=== PATIENT | female | born 1930 | race Asian ===

== ENCOUNTER 2017-04-03 18:00 | Inpatient (IN) | payer OTHER ==
[~2017-04-03] VITALS: Ht 162.6 cm; Wt 72.3 kg
[2017-04-03] MEDS ORDERED: SOD CHLORIDE 0.9% 1,000 ML IV STA (18:17)
[2017-04-03] MEDS ORDERED: IBUPROFEN 800 MG TAB PO ONE (18:30)
[2017-04-03 19:08] LABS: ADD SCAN DIFF NO
[2017-04-03 19:11] LABS: BASOPHIL # 0.1 10^3/ul (0.0-0.1); BASOPHILS % 0.4 % (0.0-2.0); EOSINOPHILS # 0.2 10^3/ul (0.0-0.5); EOSINOPHILS % 1.8 % (0.0-7.0); HEMATOCRIT 41.1 % (37.0-47.0); HEMOGLOBIN 13.8 g/dl (12.0-16.0); LYMPHOCYTES # 1.1 10^3/ul (0.8-2.9); LYMPHOCYTES % 8.2 % (15.0-51.0); MEAN CORPUSCULAR HEMOGLOBIN 30.3 pg (29.0-33.0); MEAN CORPUSCULAR HGB CONC 33.6 g/dl (32.0-37.0); MEAN CORPUSCULAR VOLUME 90.3 fl (82.0-101.0); MEAN PLATELET VOLUME 10.4 fl (7.4-10.4); MONOCYTES % 7.4 % (0.0-11.0); NEUTROPHILS % 81.7 % (39.0-77.0); PLATELET COUNT 227 10^3/UL (140-415); RED BLOOD COUNT 4.55 10^6/ul (4.20-5.40); RED CELL DISTRIBUTION WIDTH 12.9 % (11.5-14.5); WHITE BLOOD COUNT 13.5 10^3/ul (4.8-10.8)
--- NOTE | 2017-04-03 19:14 | RADRPT ---
PROCEDURE: Chest x-ray CLINICAL INDICATION: Shortness of breath TECHNIQUE: Chest single view COMPARISON: None FINDINGS: There is mild cardiomegaly and atherosclerotic aortic calcification. Pulmonary vessels are normal in caliber. Lung volumes are low. There is linear atelectasis in the right lung base. More patchy d ensities in the left lower lobe which may represent developing pneumonia. Continued follow-up is re commended. Costophrenic angles are sharp. IMPRESSION: 1. Mild cardiomegaly and atherosclerotic aortic calcification. 2. Questionable evolving left lower lobe pneumonia versus atelectasis. 3. Linear right lower lobe atelectasis RPTAT: HH .Remi Vinson MD, Date Time Electronically viewed and signed by .Remi Vinson MD, on 04/03/2017 19:13 .W/
[2017-04-03 19:19] LABS: ADD UMIC YES; URINE BILIRUBIN (Dip) NEGATIVE (NEGATIVE); URINE BLOOD (Dip) TRACE (NEGATIVE); URINE COLOR LT. YELLOW (YELLOW); URINE GLUCOSE (Dip) NEGATIVE (NEGATIVE); URINE KETONES (Dip) NEGATIVE (NEGATIVE); URINE LEUKOCYTE ESTERASE (Dip) 1+ (NEGATIVE); URINE NITRITE (Dip) POSITIVE (NEGATIVE); URINE TOTAL PROTEIN (Dip) NEGATIVE (NEGATIVE); URINE UROBILINOGEN (Dip) 0.2 E.U./dL (0.1-1.0)
[2017-04-03 19:35] LABS: ALBUMIN/GLOBULIN RATIO 1.37; BILIRUBIN,INDIRECT 0.5 mg/dl (0-1.1); BILIRUBIN,TOTAL 0.5 mg/dl (0.2-1.3); CALCIUM 9.6 mg/dl (8.4-10.2); CREATININE 0.74 mg/dl (0.44-1.00); POTASSIUM 3.7 mmol/L (3.5-5.1); TOTAL PROTEIN 6.9 g/dl (6.1-8.1)
[2017-04-03] MEDS ORDERED: ALLO100T PO (19:35)
[2017-04-03] MEDS ORDERED: ASPI-664 PO (19:36)
[2017-04-03] MEDS ORDERED: DIPH25CA6 PO (19:36)
[2017-04-03] MEDS ORDERED: TRAM-40 PO (19:37)
[2017-04-03] MEDS ORDERED: ACET500T84 PO (19:37)
[2017-04-03] MEDS ORDERED: AMLO5TAB4 PO (19:38)
[2017-04-03] MEDS ORDERED: RAMI10CA48 PO (19:38)
[2017-04-03 19:41] LABS: BACTERIA,URINE MANY; SQUAMOUS EPITHELIAL CELL,UR FEW; URINE RBCS 0-2 /HPF (0)
[2017-04-03] MEDS ORDERED: CEFEPIME 2GM/50 ML (PMX) 50 ML IVPB STA (19:58)
[2017-04-03] MEDS ORDERED: SOD CHLORIDE 0.9% 1,000 ML IV SCH (20:58)
[2017-04-03] MEDS ORDERED: ACETAMINOPHEN 325 MG TAB PO PRN (21:00)
[2017-04-03] MEDS ORDERED: ONDANSETRON 4 MG INJ IV PRN (21:00)
--- NOTE | 2017-04-03 21:02 | ERA ---
ER Documentation Chief Complaint Date/Time DATE: 04/03/17 TIME: 21:00 Chief Complaint BIB RA FOR EVAL OF BREAUX AND FEVER X 2 DAYS HPI This 86-year-old female here with her family complaining of fever for 2 days body aches malaise. She is eating well less. She has no cough no vomiting diarrhea. She has generalized weakness. She also complaining of occasional right head pain that is located just above the ear she describes as electric- like and occurs off and on lasting 1 second. No photophobia no stiff neck no back pain no dysuria. ROS All systems reviewed and are negative except as per history of present illness. Medications Home Meds Reported Medications Amlodipine Besylate* (Norvasc*) 5 Mg Tablet, 5 MG PO DAILY, TAB 04/03/17 Ramipril (Ramipril) 10 Mg Capsule, 10 MG PO DAILY, CAP 04/03/17 Tramadol Hcl* (Ultram*) 50 Mg Tablet, 50 MG PO DAILY Y for PAIN, TAB 04/03/17 Acetaminophen (Q-Pap Extra Strength) 500 Mg Tablet, 500 MG PO DAILY, TAB 04/03/17 Diphenhydramine Hcl* (Diphenhydramine Hcl*) 25 Mg Capsule, 25 MG PO DAILY Y for ITCHING, CAP 04/03/17 Aspirin* (Aspirin* EC) 81 Mg Tablet.dr, 81 MG PO DAILY, TAB 04/03/17 Allopurinol* (Allopurinol*) 100 Mg Tablet, 100 MG PO DAILY, TAB 04/03/17 Allergies Allergies: Coded Allergies: No Known Allergy (Unverified , 04/03/17) FmHx Family History: No coronary disease Physical Exam Vitals Vital Signs Date Time Temp Pulse Resp B/P Pulse Ox O2 Delivery O2 Flow Rate FiO2 04/03/17 18:06 98.9 94 19 140/72 92 Physical Exam Const: Well-developed, well-nourished, slightly ill-appearing Head: Atraumatic, normocephalic Eyes: Normal Conjunctiva, PERRLA, EOMI, normal sclera, no nystagmus ENT: Normal External Ears, Nose and Mouth, moist mucus membranes. Neck: Full range of motion. No meningismus, no lymphadenopathy. Resp: Clear to auscultation bilaterally, no wheezing, rhonchi, rales Cardio: Regular rate and rhythm, no murmurs, S1 S2 present Abd: Soft, non tender x 4, non distended. Normal bowel sounds, no guarding or rebound, no pulsitile abdominal masses or bruits Skin: No petechiae or rashes, no ecchymosis , no maculopapular rash Back: No midline or flank tenderness Ext: No cyanosis, or edema, FROM x 4, normal inspection, neurovascularly intact x 4 Neur: Awake and alert, STR 5/5 x 4, sensation intact x 4, no focal findings, cerebellum intact Psych: Normal Mood and Affect Result Diagram: 04/03/17183404/03/171834 Results 24 hrs Laboratory Tests Test 04/03/17 18:35 White Blood Count 13.510^3/ul Red Blood Count 4.5510^6/ul Hemoglobin 13.8g/dl Hematocrit 41.1% Mean Corpuscular Volume 90.3fl Mean Corpuscular Hemoglobin 30.3pg Mean Corpuscular Hemoglobin Concent 33.6g/dl Red Cell Distribution Width 12.9% Platelet Count 41394^3/UL Mean Platelet Volume 10.4fl Neutrophils % 81.7% Lymphocytes % 8.2% Monocytes % 7.4% Eosinophils % 1.8% Basophils % 0.4% Nucleated Red Blood Cells % 0.0/100WBC Neutrophils # 11.010^3/ul Lymphocytes # 1.110^3/ul Monocytes # 1.010^3/ul Eosinophils # 0.210^3/ul Basophils # 0.110^3/ul Nucleated Red Blood Cells # 0.010^3/ul Urine Color LT. YELLOW Urine Clarity SLIGHTLY CLOUDY Urine pH 5.5 Urine Specific [place] <=1.005 Urine Ketones NEGATIVE Urine Nitrite POSITIVE Urine Bilirubin NEGATIVE Urine Urobilinogen 0.2 E.U./dL Urine Leukocyte Esterase 1+ Urine Microscopic RBC 0-2/HPF Urine Microscopic WBC 10-25/HPF Urine Squamous Epithelial Cells FEW Urine Bacteria MANY Urine Hemoglobin TRACE Urine Glucose NEGATIVE% Urine Total Protein NEGATIVE Sodium Level 137mmol/L Potassium Level 3.7mmol/L Chloride Level 103mmol/L Carbon Dioxide Level 25mmol/L Anion Gap 13 Blood Urea Nitrogen 14mg/dl Creatinine 0.74mg/dl Glucose Level 117mg/dl Lactic Acid Level 1.1mmol/L Calcium Level 9.6mg/dl Total Bilirubin 0.5mg/dl Direct Bilirubin 0.00mg/dl Indirect Bilirubin 0.5mg/dl Aspartate Amino Transf (AST/SGOT) 47IU/L Alanine Aminotransferase (ALT/SGPT) 55IU/L Alkaline Phosphatase 112IU/L Total Protein 6.9g/dl Albumin 4.0g/dl Globulin 2.90g/dl Albumin/Globulin Ratio 1.37 Current Medications Medications (Trade) Dose Ordered Sig/Honey Route PRN Reason Start Time Stop Time Status Last Admin Dose Admin Sodium Chloride (NS) 1,000 ml @ 1,000 mls/hr Q1H STAT IV 04/03/17 18:17 04/03/17 19:16 DC 04/03/17 19:00 Ibuprofen 800 mg 800 mg ONCE ONCE PO 04/03/17 18:30 04/03/17 18:31 DC 04/03/17 19:00 Cefepime HCl (Maxipime 2gm/50 ml (Pmx)) 50 ml @ 100 mls/hr ONCE STAT IVPB 04/03/17 19:58 04/03/17 20:27 DC 04/03/17 20:18 Procedures/MDM Patient is elevated white blood count with an infected urine. She does not meet sepsis criteria I will admit the patient for IV fluids and antibiotic therapy. Blood and urine cultures have been drawn. Departure Diagnosis: Primary Impression: Urinary tract infection Qualified Code: N30.00 - Acute cystitis without hematuria Additional Impression: Fever Qualified Code: R50.9 - Fever, unspecified fever cause Condition: Stable SARAI PEPPER DO April 03, 2017 21:02
[2017-04-03 22:50] VITALS: Ht 162.6 cm; Wt 72.3 kg
[2017-04-03 23:00] VITALS: BP 135/63; RESP 16
[2017-04-04] MEDS ORDERED: ACETAMINOPHEN 500 MG TAB PO PRN (00:30)
[2017-04-04] MEDS ORDERED: ONDANSETRON 4 MG INJ IV PRN ×2 (00:30)
[2017-04-04] MEDS ORDERED: SOD CHLORIDE 0.9% 1,000 ML IV SCH (00:30)
[2017-04-04] MEDS ORDERED: traMADol 50 MG TAB PO PRN (00:30)
[2017-04-04] MEDS ORDERED: DIPHENHYDRAMINE 25 MG CAP PO PRN (00:30)
--- NOTE | 2017-04-04 05:49 | HP ---
Date/Time of Note Date/Time of Note DATE: 04/04/17 TIME: 05:33 Assessment/Plan VTE Prophylaxis VTE Prophylaxis Intervention: SCD's Lines/Catheters [facility] Peripheral IV Urinary Cath still in place: No Assessment/Plan Assessment/Plan 1. Sepsis: 2/2 UTI and probable developing PNA - Cont abx - f/u culture results - IV fluid - ID consult 2. UTI: see above 3. Likely LLL PNA - cont abx - send respiratory culture if possible 4. Headche: intermittent - pain meds PRN - Will obtain CT head as needed 5. HTN: BP within acceptable range - cont home meds 6. Hx of Gout - cont Allopurinol HPI/ROS Admit Date/Time Admit Date/Time April 03, 2017 at 20:59 Hx of Present Illness Patient is an 86 yo female with hx of HTN, Gout and Arthritis who presented to ER for 2 days hx of fever, generalized body ache, intermittent headache. No reported neck stiffness, cough, CP, SOB, abd pain, dysuria. In ER, vitals with HR of 94 otherwise stable, WBC 13.5, UA with UTI and CXR evolving LLL PNA vs atelectasis. . PMH/Family/Social Past Medical History Medical History: hypertension, other (Gout) Social History Alcohol Use: none Smoking Status: Never smoker Drug Use: none Exam/Review of Systems Vital Signs Vitals Vital Signs Date Time Temp Pulse Resp B/P Pulse Ox O2 Delivery O2 Flow Rate FiO2 04/03/17 23:00 97.6 72 16 135/63 96 Intake and Output 04/03/17 04/03/17 04/04/17 15:00 23:00 07:00 Intake Total 1000 ml Balance 1000 ml Exam Constitutional: other (Sleepy, but arousable. No acute distress) Head: atraumatic, normocephalic Eyes: PERRL Respiratory: diminished breath sounds Cardiovascular: nl pulses, regular rate and rhythm Gastrointestinal: non-tender, soft Extremities: normal pulses Labs Result Diagram: 04/03/17183404/03/171834 Medications Medications Current Medications Sodium Chloride (NS) 1,000 ml @ 80 mls/hr [id number] IV Last administered on t 21:16; Admin Dose 80 MLS/HR; Start 04/03/17 at 20:58; Stop 04/04/17 at 09:27 Heparin Sodium (Porcine) 5000 unit 5,000 unit Q12 SC ; Start 04/04/17 at 09:00 Sodium Chloride 1,000 ml @ 75 mls/hr [id number] IV Last administered on 04/04/17t 01:59; Admin Dose 75 MLS/HR; Start 04/04/17 at 00:30; Stop 04/04/17 at 12:31 Ciprofloxacin/ Dextrose (Cipro Ivpb) 200 ml @ 200 mls/hr Q12 IVPB ; Start at 09:00 Allopurinol (Zyloprim) 100 mg DAILY PO ; Start 04/04/17 at 09:00 Amlodipine Besylate (Norvasc) 5 mg DAILY PO ; Start 04/04/17 at 09:00 Aspirin (Halfprin) 81 mg DAILY PO ; Start 04/04/17 at 09:00 Benazepril HCl (Lotensin) 40 mg DAILY PO ; Start 04/04/17 at 09:00 Acetaminophen (Tylenol Tab) 500 mg Q6H PRN PO PAIN AND OR ELEVATED TEMP; Start 04/04/17 at 00:30 Diphenhydramine HCl (Benadryl) 25 mg Q8 PRN PO ITCHING; Start 04/04/17 at 00:30 Tramadol HCl (Ultram) 50 mg Q12 PRN PO PAIN LEVEL 6-10; Start 04/04/17 at 00:30 Ondansetron HCl (Zofran Inj) 4 mg Q6H PRN IV NAUSEA AND/OR VOMITING; Start 04/04 at 00:30 BENIGNO CONTRERAS MD April 04, 2017 05:43
[2017-04-04 06:30] LABS: ADD SCAN DIFF NO
[2017-04-04 06:32] LABS: BASOPHILS % 0.3 % (0.0-2.0); EOSINOPHILS # 0.2 10^3/ul (0.0-0.5); EOSINOPHILS % 1.3 % (0.0-7.0); HEMATOCRIT 42.5 % (37.0-47.0); HEMOGLOBIN 13.9 g/dl (12.0-16.0); LYMPHOCYTES % 7.6 % (15.0-51.0); MEAN CORPUSCULAR HGB CONC 32.7 g/dl (32.0-37.0); MEAN CORPUSCULAR VOLUME 91.6 fl (82.0-101.0); MEAN PLATELET VOLUME 10.8 fl (7.4-10.4); MONOCYTE # 1.1 10^3/ul (0.3-0.9); MONOCYTES % 8.7 % (0.0-11.0); NEUTROPHIL # 10.5 10^3/ul (1.6-7.5); NEUTROPHILS % 81.7 % (39.0-77.0); PLATELET COUNT 228 10^3/UL (140-415); RED BLOOD COUNT 4.64 10^6/ul (4.20-5.40); RED CELL DISTRIBUTION WIDTH 13.1 % (11.5-14.5); WHITE BLOOD COUNT 12.8 10^3/ul (4.8-10.8)
[2017-04-04 07:35] LABS: ALBUMIN 3.8 g/dl (3.3-4.9); ALBUMIN/GLOBULIN RATIO 1.15; BILIRUBIN,INDIRECT 0.6 mg/dl (0-1.1); BILIRUBIN,TOTAL 0.6 mg/dl (0.2-1.3); CALCIUM 8.5 mg/dl (8.4-10.2); CREATININE 0.65 mg/dl (0.44-1.00); MAGNESIUM 1.9 mg/dl (1.7-2.5); PHOSPHORUS 2.4 mg/dl (2.5-4.9); POTASSIUM 3.4 mmol/L (3.5-5.1); TOTAL PROTEIN 7.1 g/dl (6.1-8.1)
[2017-04-04 07:39] VITALS: BP 124/64; RESP 20
[2017-04-04] MEDS ORDERED: SUMATRIPTAN 6 MG/0.5 ML INJ SC ONE (08:30)
[2017-04-04] MEDS ORDERED: NON-FORMULARY/PATIENT OWN MED (Ramipril 10 MG) PO SCH (09:00)
[2017-04-04] MEDS ORDERED: CIPROFLOXACIN 400MG/D5W 200 ML IVPB SCH ×2 (09:00)
[2017-04-04] MEDS: HEPARIN 5,000 UNIT/0.5 ML VIAL SC SCH ×2 (09:00→21:00)
[2017-04-04] MEDS ORDERED: BENAZEPRIL 40 MG TAB PO SCH (09:00)
[2017-04-04] MEDS: ASPIRIN (EC) 81 MG TAB PO SCH (09:10)
[2017-04-04] MEDS: ALLOPURINOL 100 MG TAB PO SCH (09:11)
[2017-04-04] MEDS: AMLODIPINE 5 MG TAB PO SCH (09:11)
[2017-04-04] MEDS ORDERED: SUMATRIPTAN 6 MG/0.5 ML INJ SC PRN (10:30)
[2017-04-04] MEDS ORDERED: ALBUTEROL 18 GM INHALER INH PRN (16:30)
[2017-04-04] MEDS ORDERED: GUAIFENESIN 20 MG/ML 5ML CUP PO PRN (16:30)
--- NOTE | 2017-04-04 16:51 | PN ---
Date/Time of Note Date/Time of Note DATE: 04/04/17 TIME: 16:49 Assessment/Plan VTE Prophylaxis VTE Prophylaxis Intervention: LMWH Lines/Catheters IV C[facility]ter Type (from [facility]): Peripheral IV Urinary Cath still in place: No Assessment/Plan Chief Complaint/Hosp Course S: No distress. No appetite. Constipated. Recent abdl pain? fever. No dyspnea cough. O: vss PE No pallor adenopathy Reg, no m/r/g CTAB bs+ nt nd no r/r/g; no cvat No edema A/P 1. Suspected sepsis/potentially urinary in origin. Stable f/u on cultures. on Zosyn 2. Acute cystitis 3. Possible pneumonia 4. Constipation 5. Chronic hypertension/gout 6. DJD Problems: Exam/Review of Systems Vital Signs Vitals Vital Signs Date Time Temp Pulse Resp B/P Pulse Ox O2 Delivery O2 Flow Rate FiO2 04/04/17 07:39 97.7 85 20 124/64 95 Intake and Output 04/03/17 04/03/17 04/04/17 15:00 23:00 07:00 Intake Total 1450 ml Balance 1450 ml Results Result Diagram: 04/04/17 0550 04/04/17 0550 Results 24 hrs Laboratory Tests Test 04/03/17 18:35 04/04/17 05:50 White Blood Count 13.5 H 12.8 H Red Blood Count 4.55 4.64 Hemoglobin 13.8 13.9 Hematocrit 41.1 42.5 Mean Corpuscular Volume 90.3 91.6 Mean Corpuscular Hemoglobin 30.3 30.0 Mean Corpuscular Hemoglobin Concent 33.6 32.7 Red Cell Distribution Width 12.9 13.1 Platelet Count 227 228 Mean Platelet Volume 10.4 10.8 H Neutrophils % 81.7 H 81.7 H Lymphocytes % 8.2 L 7.6 L Monocytes % 7.4 8.7 Eosinophils % 1.8 1.3 Basophils % 0.4 0.3 Nucleated Red Blood Cells % 0.0 0.0 Neutrophils # 11.0 H 10.5 H Lymphocytes # 1.1 1.0 Monocytes # 1.0 H 1.1 H Eosinophils # 0.2 0.2 Basophils # 0.1 0.0 Nucleated Red Blood Cells # 0.0 0.0 Urine Color LT. YELLOW Urine Clarity SLIGHTLY CLOUDY Urine pH 5.5 Urine Specific [place] <=1.005 L Urine Ketones NEGATIVE Urine Nitrite POSITIVE H Urine Bilirubin NEGATIVE Urine Urobilinogen 0.2 E.U./dL Urine Leukocyte Esterase 1+ H Urine Microscopic RBC 0-2 Urine Microscopic WBC 10-25 Urine Squamous Epithelial Cells FEW Urine Bacteria MANY Urine Hemoglobin TRACE Urine Glucose NEGATIVE Urine Total Protein NEGATIVE Sodium Level 137 138 Potassium Level 3.7 3.4 L Chloride Level 103 108 Carbon Dioxide Level 25 24 Anion Gap 13 9 Blood Urea Nitrogen 14 10 Creatinine 0.74 0.65 Glucose Level 117 133 Lactic Acid Level 1.1 Calcium Level 9.6 8.5 Total Bilirubin 0.5 0.6 Direct Bilirubin 0.00 0.00 Indirect Bilirubin 0.5 0.6 Aspartate Amino Transf (AST/SGOT) 47 H 35 Alanine Aminotransferase (ALT/SGPT) 55 46 Alkaline Phosphatase 112 104 Total Protein 6.9 7.1 Albumin 4.0 3.8 Globulin 2.90 3.30 H Albumin/Globulin Ratio 1.37 1.15 Phosphorus Level 2.4 L Magnesium Level 1.9 Medications Medications Current Medications Heparin Sodium (Porcine) (Heparin (5000 Units/0.5 ml)) 5,000 unit Q12 SC ; Start 04/04/17 at 09:00 Allopurinol (Zyloprim) 100 mg DAILY PO Last administered on 04/04/17 09:11; Admin Dose 100 MG; Start 04/04/17 at 09:00 Amlodipine Besylate (Norvasc) 5 mg DAILY PO Last administered on 04/04/17 09:11 ; Admin Dose 5 MG; Start 04/04/17 at 09:00 Aspirin (Halfprin) 81 mg DAILY PO Last administered on 04/04/17 09:10; Admin Dose 81 MG; Start 04/04/17 at 09:00 Acetaminophen (Tylenol Tab) 500 mg Q6H PRN PO PAIN AND OR ELEVATED TEMP; Start 04/04/17 at 00:30 Diphenhydramine HCl (Benadryl) 25 mg Q8 PRN PO ITCHING; Start 04/04/17 at 00:30 Tramadol HCl (Ultram) 50 mg Q12 PRN PO PAIN LEVEL 6-10 Last administered on 04/04 06:13; Admin Dose 50 MG; Start 04/04/17 at 00:30 Ondansetron HCl (Zofran Inj) 4 mg Q6H PRN IV NAUSEA AND/OR VOMITING Last administered on 04/04/17t 12:30; Admin Dose 4 MG; Start 04/04/17 at 00:30 Sumatriptan Succinate 6 mg 6 mg ONCE PRN SC MIGRAINE BREAUX; Start 04/04/17 at 10:30 ; Stop 04/04/17 at 23:00 Piperacillin Sod/ Tazobactam Sod (Zosyn 3.375gm/ 100 ml (Pmx)) 100 ml @ 25 mls/ hr TID@02,10,18 IVPB ; Start 04/04/17 at 18:00 Guaifenesin (Robitussin Liquid Cup) 200 mg Q4H PRN PO COUGH; Start 04/04/17 at 16:30 CHINA MENJIVAR MD April 04, 2017 16:51
[2017-04-04] MEDS ORDERED: MEGESTROL (40 MG/ML) 10ML CUP PO SCH (17:00)
[2017-04-04] MEDS: SENNA/DOCUSATE NA (8.6MG/50MG) TAB PO SCH ×2 (17:39→21:09)
[2017-04-04] MEDS: PIPER-TAZO 3.375 GM IV (PMX) 100 ML IVPB SCH (17:39)
[2017-04-04 19:53] VITALS: BP 104/49; RESP 20
[2017-04-04 21:03] VITALS: BP 118/64
[2017-04-04] MEDS: LACTOBACILLUS RHAMNOSUS CAP PO SCH (21:09)
[2017-04-05] MEDS: PIPER-TAZO 3.375 GM IV (PMX) 100 ML IVPB SCH ×3 (02:01→17:01)
[2017-04-05 06:23] LABS: ADD SCAN DIFF NO
[2017-04-05 06:33] LABS: BASOPHIL # 0.1 10^3/ul (0.0-0.1); BASOPHILS % 0.6 % (0.0-2.0); EOSINOPHILS # 0.3 10^3/ul (0.0-0.5); EOSINOPHILS % 3.7 % (0.0-7.0); HEMATOCRIT 37.8 % (37.0-47.0); HEMOGLOBIN 12.4 g/dl (12.0-16.0); LYMPHOCYTES # 1.6 10^3/ul (0.8-2.9); LYMPHOCYTES % 18.7 % (15.0-51.0); MEAN CORPUSCULAR HEMOGLOBIN 30.2 pg (29.0-33.0); MEAN CORPUSCULAR HGB CONC 32.8 g/dl (32.0-37.0); MEAN CORPUSCULAR VOLUME 92.2 fl (82.0-101.0); MEAN PLATELET VOLUME 10.5 fl (7.4-10.4); MONOCYTES % 12.2 % (0.0-11.0); NEUTROPHIL # 5.5 10^3/ul (1.6-7.5); NEUTROPHILS % 64.6 % (39.0-77.0); PLATELET COUNT 227 10^3/UL (140-415); RED CELL DISTRIBUTION WIDTH 12.7 % (11.5-14.5); WHITE BLOOD COUNT 8.5 10^3/ul (4.8-10.8)
[2017-04-05 06:46] LABS: INR 1.07; PROTIME 13.9 Sec (12.2-14.2); PT RATIO 1.1
[2017-04-05 07:08] LABS: ANION GAP 12 (8-16); BLOOD UREA NITROGEN 16 mg/dl (7-20); CALCIUM 8.2 mg/dl (8.4-10.2); CARBON DIOXIDE 26 mmol/L (21-31); CHLORIDE 105 mmol/L (97-110); CREATININE 0.92 mg/dl (0.44-1.00); GLUCOSE 120 mg/dl (70-220); MAGNESIUM 2.2 mg/dl (1.7-2.5); PHOSPHORUS 2.7 mg/dl (2.5-4.9); POTASSIUM 3.6 mmol/L (3.5-5.1); SODIUM 139 mmol/L (135-144)
[2017-04-05 07:11] LABS: TROPONIN-I < 0.012 ng/ml (0.00-0.12)
[2017-04-05 07:27] LABS: THYROID STIMULATING HORMONE 0.998 MIU/L (0.465-4.680)
[2017-04-05 08:04] VITALS: BP 114/56; RESP 19
[2017-04-05] MEDS: LACTOBACILLUS RHAMNOSUS CAP PO SCH ×2 (08:09→20:17)
[2017-04-05] MEDS: ASPIRIN (EC) 81 MG TAB PO SCH (08:09)
[2017-04-05] MEDS: SENNA/DOCUSATE NA (8.6MG/50MG) TAB PO SCH ×2 (08:09→20:17)
[2017-04-05] MEDS: AMLODIPINE 5 MG TAB PO SCH (08:09)
[2017-04-05] MEDS: ALLOPURINOL 100 MG TAB PO SCH (08:09)
[2017-04-05] MEDS: HEPARIN 5,000 UNIT/0.5 ML VIAL SC SCH ×2 (08:10→20:20)
--- NOTE | 2017-04-05 10:14 | RADRPT ---
Vent Rate: 67 bpm RR Interval: 0 msec TN Interval: 154 msec QRS Duration: 84 msec QT Interval: 412 msec QTC Interval: 435 msec P-R-T [place]: 33 - -1 - 17 degrees Normal sinus rhythm T wave abnormality, consider anterior ischemia Abnormal ECG Electronically Signed By: Miguel Bustamante [id number]
--- NOTE | 2017-04-05 12:37 | PN ---
Date/Time of Note Date/Time of Note DATE: 04/05/17 TIME: 12:36 Assessment/Plan VTE Prophylaxis VTE Prophylaxis Intervention: LMWH Lines/Catheters IV [facility] [place] Urinary Cath still in place: No Assessment/Plan Chief Complaint/Hosp Course S: 04/04 no distress. No appetite. Constipated. Recent abdl pain? fever. No dyspnea cough. 04/05 no events. Stable O: vss PE No pallor Reg, no m/r/g CTAB bs+ nt nd no r/r/g; no cvat No edema A/P 1. Suspected sepsis/potentially urinary in origin. Stable f/u on cultures. on Zosyn 2. Acute cystitis; appears Levaquin sensitive. Awaiting blood culture results. 3. Possible pneumonia 4. Constipation 5. Chronic hypertension/gout; lateral T-wave changes probably old. Troponin electrolytes ok. 6. DJD Problems: Exam/Review of Systems Vital Signs Vitals Vital Signs Date Time Temp Pulse Resp B/P Pulse Ox O2 Delivery O2 Flow Rate FiO2 04/05/17 08:04 98.0 67 19 114/56 93 Intake and Output 04/04/17 04/04/17 04/05/17 15:00 23:00 07:00 Intake Total 650 ml 740 ml 450 ml Balance 650 ml 740 ml 450 ml Results Result Diagram: 04/05/17 0455 04/05/17 0455 Results 24 hrs Laboratory Tests Test 04/05/17 04:45 04/05/17 04:55 Prothrombin Time 13.9 Prothrombin Time Ratio 1.1 INR International Normalized Ratio 1.07 White Blood Count 8.5 # Red Blood Count 4.10 L Hemoglobin 12.4 Hematocrit 37.8 Mean Corpuscular Volume 92.2 Mean Corpuscular Hemoglobin 30.2 Mean Corpuscular Hemoglobin Concent 32.8 Red Cell Distribution Width 12.7 Platelet Count 227 Mean Platelet Volume 10.5 H Neutrophils % 64.6 Lymphocytes % 18.7 Monocytes % 12.2 H Eosinophils % 3.7 Basophils % 0.6 Nucleated Red Blood Cells % 0.0 Neutrophils # 5.5 Lymphocytes # 1.6 Monocytes # 1.0 H Eosinophils # 0.3 Basophils # 0.1 Nucleated Red Blood Cells # 0.0 Sodium Level 139 Potassium Level 3.6 Chloride Level 105 Carbon Dioxide Level 26 Anion Gap 12 Blood Urea Nitrogen 16 Creatinine 0.92 Glucose Level 120 Hemoglobin A1c 6.3 H Calcium Level 8.2 L Phosphorus Level 2.7 Magnesium Level 2.2 Troponin I < 0.012 Thyroid Stimulating Hormone (TSH) 0.998 Medications Medications Current Medications Heparin Sodium (Porcine) (Heparin (5000 Units/0.5 ml)) 5,000 unit Q12 SC ; Start 04/04/17 at 09:00 Allopurinol (Zyloprim) 100 mg DAILY PO Last administered on 04/05/17 08:09; Admin Dose 100 MG; Start 04/04/17 at 09:00 Amlodipine Besylate (Norvasc) 5 mg DAILY PO Last administered on 04/05/17 08: 09; Admin Dose 5 MG; Start 04/04/17 at 09:00 Aspirin (Halfprin) 81 mg DAILY PO Last administered on 04/05/17 08:09; Admin Dose 81 MG; Start 04/04/17 at 09:00 Acetaminophen (Tylenol Tab) 500 mg Q6H PRN PO PAIN AND OR ELEVATED TEMP; Start 04/04/17 at 00:30 Diphenhydramine HCl (Benadryl) 25 mg Q8 PRN PO ITCHING; Start 04/04/17 at 00:30 Tramadol HCl (Ultram) 50 mg Q12 PRN PO PAIN LEVEL 6-10 Last administered on 04/04 06:13; Admin Dose 50 MG; Start 04/04/17 at 00:30 Ondansetron HCl 4 mg 4 mg Q6H PRN IV NAUSEA AND/OR VOMITING Last administered on 04/04/17 12:30; Admin Dose 4 MG; Start 04/04/17 at 00:30 Piperacillin Sod/ Tazobactam Sod (Zosyn 3.375gm/ 100 ml (Pmx)) 100 ml @ 25 mls/ hr TID@02,10,18 IVPB Last administered on 04/05/17 09:17; Admin Dose 25 MLS/HR ; Start 04/04/17 at 18:00 Guaifenesin (Robitussin Liquid Cup) 200 mg Q4H PRN PO COUGH; Start 04/04/17 at 16:30 Lactobacillus Acidophilus/ Rhamnosus (Culturelle) 1 cap BID PO Last administered on 04/05/17 08:09; Admin Dose 1 CAP; Start 04/04/17 at 21:00 Senna/Docusate Sodium (Senokot-S) 2 tab BID PO Last administered on 04/05/17t 08:09; Admin Dose 2 TAB; Start 04/04/17 at 17:00 CHINA MENJIVAR MD April 05, 2017 12:37
[2017-04-05 21:00] VITALS: BP 112/55; RESP 18
[2017-04-06] MEDS: PIPER-TAZO 3.375 GM IV (PMX) 100 ML IVPB SCH ×2 (02:05→09:50)
[2017-04-06 07:41] VITALS: BP 137/59; RESP 18
[2017-04-06] MEDS: LACTOBACILLUS RHAMNOSUS CAP PO SCH (08:04)
[2017-04-06] MEDS: ASPIRIN (EC) 81 MG TAB PO SCH (08:04)
[2017-04-06] MEDS: SENNA/DOCUSATE NA (8.6MG/50MG) TAB PO SCH (08:05)
[2017-04-06] MEDS: AMLODIPINE 5 MG TAB PO SCH (08:05)
[2017-04-06] MEDS: ALLOPURINOL 100 MG TAB PO SCH (08:05)
[2017-04-06] MEDS: HEPARIN 5,000 UNIT/0.5 ML VIAL SC SCH (08:05)
--- NOTE | 2017-04-06 14:20 | PDOCDIS ---
Discharge Instructions DIAGNOSIS Discharge Diagnosis: sepsis CONDITION Patient Condition: Good HOME CARE INSTRUCTIONS: Special Diet: regularYour diet recommendation is: stay hydrated; 8 glasses of fluids/day ACTIVITY: Activity Restrictions: Slowly Increase Activity Avoid heavy lifting Do not Drive FOLLOW UP/APPOINTMENTS Appointments PCP 1wCHINA Zhong MD April 06, 2017 14:20
[2017-04-06] MEDS ORDERED: LACT1CAP57 PO (14:23)
[2017-04-06] MEDS ORDERED: LEVO750T8 PO (14:23)
[2017-04-06] MEDS ORDERED: LEVOFLOXACIN 750 MG TABLET PO SCH (14:30)
--- NOTE | 2017-04-06 14:43 | CONS ---
DATE OF ADMISSION: 04/03/2017 DATE OF CONSULTATION: 04/06/2017 TYPE OF CONSULTATION: Infectious Disease. REASON FOR CONSULTATION: Antibiotic management. HISTORY OF PRESENT ILLNESS: Kathya Sapp is an 86-year-old female admitted on 04/03/2017 with genera lized body aches and is being seen for antibiotic management. Her past problems include: 1. Hypertension. 2. Gout. 3. Arthritis. The patient presented to the emergency room with 2 days of fever, generalized body aches, intermitte nt headaches. She had no stiff neck, cough or shortness of breath. In the emergency room, her whit e count was 13.5, H and H of 13.8 and 41.1, platelet count 227,000, and her white count on 7 was 8.5. BUN and creatinine 16/0.92. Urine was 1+ leukocyte esterase, 10 to 25 white cells per h igh-power field. Chest x-ray showed mild cardiomegaly and atherosclerosis, questionable evolving le ft lower lobe pneumonia versus atelectasis, linear right lower lobe atelectasis. Microbiology: Her blood cultures are positive for E. coli as is her urine, so she has urinary tract infection with se psis. The patient was started on Zosyn 3.375 grams IV piggyback q.8. PAST MEDICAL HISTORY: Operations as outlined. FAMILY HISTORY: Noncontributory. SOCIAL HISTORY: She does not smoke, drink or abuse drugs. ALLERGIES: NONE TO PENICILLIN, SULFA OR FOODS. MEDICATIONS: Per chart. REVIEW OF SYSTEMS: As per HPI. PHYSICAL EXAMINATION: GENERAL: The patient is a well-developed, well-nourished elderly female who is alert, responsive, i n no acute distress. She is sleepy, but arousable. SKIN: Without generalized rash. HEENT: Within normal limits. NECK: Supple. LYMPH NODES: None palpable. CHEST: Decreased breath sounds at the bases. HEART: Without murmur or gallop. ABDOMEN: Soft, nontender, without organosplenomegaly or masses. EXTREMITIES: Without cyanosis, clubbing, or edema. RECTAL AND GENITAL: Deferred. NEUROLOGIC: No focal neurological abnormalities. IMPRESSION AND PLAN: The patient has urinary tract infection with sepsis. We are going to continue her on her Zosyn. She does not have a catheter in place. She has acute cystitis. It may be sensi tive to Levaquin. We will await blood culture results. [facility] . We can switch her over to either Levaquin or ceftriaxone. Dictated By: LINO FIELD MD, JD/GISSELL Conf#: [id number] DID#: [id number]
--- NOTE | 2017-04-06 15:05 | DS ---
DATE OF ADMISSION: 04/03/2017 DATE OF DISCHARGE: 04/06/2017 DATE OF : 1930 PRIMARY CARE PHYSICIAN: Unknown. INFORMATION SERVICES ASSISTANT: None. DIAGNOSIS ON ADMISSION: Sepsis. DIAGNOSES ON DISCHARGE: 1. Sepsis due to acute cystitis. 2. Chronic hypertension. 3. Prediabetes. 4. Constipation. 5. Chronic gout. HOSPITAL COURSE: This is an 86-year-old female admitted with suspected sepsis. Blood cultures and urine abnormal for E. coli consistent with sepsis, ____acute cystitis or in the past termed as urose psis , sensitive to Cipro and Levaquin. The patient is stable and fit for discharge. Not sure if the urine is sensitive to Cipro, therefo re will go home on Levaquin. She is tolerating diet. No evidence of present end organ damage or fe giancarlo. Stable and fit for discharge. DISCHARGE PLAN: Home. Follow up with primary in 1 week. DIET: Low salt, low sugar. ACTIVITY: No driving. DURABLE MEDICAL EQUIPMENT: None. CODE STATUS: FULL. CONDITION: Good. BARRIERS TO DISCHARGE: None. PENDING TESTS: None. FUNCTIONAL STATUS: The patient is awake, alert. We are aware of care plan as much as possible. ALLERGIES: NO KNOWN DRUG ALLERGIES. REASON FOR ADMISSION: Sepsis. IMAGING STUDIES: Chest x-ray: No acute process, mild cardiomegaly, atelectasis versus pneumonia. Patient does not have a productive cough. Blood cultures positive for E. coli, sensitive to Levaqui n and Cipro. The urine E. coli appears also sensitive to same. Influenza negative. CMP unremarkable. A1c of 6.3. Troponin negative. TSH 0.988. Lactic acid of 1. INR 1. White sue l count to 8, hemoglobin and hematocrit of 12 and 37, platelets of 227. Urine shows positive nitrit e, leukocyte esterase, white cells, 10-25, many bacteria. DISCHARGE MEDICATIONS: CONTINUED MEDICATIONS: 1. Allopurinol 100. 2. Norvasc 5. 3. Aspirin Ecotrin 81. 4. Ramipril 10. NEW MEDICATIONS: 1. Culturelle 1 capsule twice daily. 2. Levaquin 750 daily. Dictated By: CHINA FINK/NTS Conf#: [id number] DID#: [id number]
== END 2017-04-06 18:15 | disposition home or self-care (01) | DRG 872 ==
LOC: E/R 18:00 → PP2 20:59
PROVIDERS: ADMIT Internal Medicine; ATTEND Internal Medicine
DX: A41.51 Sepsis due to Escherichia coli [E. coli] (principal); I10 Essential (primary) hypertension; N30.00 Acute cystitis without hematuria; R73.03 Prediabetes; M1A.9XX0 Chronic gout, unspecified, without tophus (tophi); K59.09 Other constipation; M19.90 Unspecified osteoarthritis, unspecified site; R51 Headache; Z79.82 Long term (current) use of aspirin
CPT/HCPCS: 36415; 71010; 80048; 80053; 81001; 81003; 83036; 83605; 83735; 84100; 84443; 84484; 85025; 85610; 87040; 87086; 87400; 93005; 96374; J0692; J0744; J1644; J2405; J2543; J3030; J7030

== ENCOUNTER 2018-12-02 14:32 | Emergency (ER) | payer OTHER ==
[~2018-12-02] VITALS: Ht 167.6 cm; Wt 96.0 kg
[~2018-12-02 14:32] MED LIST: ALLO100T PO; AMLO5TAB4 PO; ASPI-817 PO; LACT1CAP57 PO; LEVO750T8 PO; RAMI10CA48 PO
[2018-12-02 14:37] VITALS: Ht 167.6 cm; Wt 96.0 kg
[2018-12-02] MEDS ORDERED: AMOX500C2 PO (18:43)
--- NOTE | 2018-12-02 18:47 | ERD ---
ER Documentation Chief Complaint Chief Complaint Complains of right ear pain x 3 days HPI This is an 88-year-old female with a known history of diet-controlled diabetes and hypertension. She presents to the emergency department with right ear pain for the past 3 days. She is been experiencing tinnitus is a mild right-sided headache. She had no fevers or shaking or chills. She states the ear pain is a dull achy sensation. No alleviating or exacerbating factors. No neck pain. No hemoptysis hematemesis or melanotic stools per ROS All systems reviewed and are negative except as per history of present illness. Medications Home Meds Active Scripts Amoxicillin* (Amoxicillin*) 500 Mg Cap, 500 MG PO TID for 7 Days, CAP Prov:JACE MENCHACA MD 12/02/18 Levofloxacin* (Levofloxacin*) 750 Mg Tablet, 750 MG PO DAILY for 10 Days, #10 TAB Prov:CHINA MENJIVAR MD 04/06/17 Lactobacillus Rhamnosus* (Culturelle*) 1 Each Cap.sprink, 1 CAP PO BID for 20 Days, #40 CAP Prov:CHINA MENJIVAR MD 04/06/17 Reported Medications Amlodipine Besylate* (Norvasc*) 5 Mg Tablet, 5 MG PO DAILY, TAB 04/03/17 Ramipril (Ramipril) 10 Mg Capsule, 10 MG PO DAILY, CAP 04/03/17 Aspirin* (Aspirin* EC) 81 Mg Tablet.dr, 81 MG PO DAILY, TAB 04/03/17 Allopurinol* (Allopurinol*) 100 Mg Tablet, 100 MG PO DAILY, TAB 04/03/17 Allergies Allergies: Coded Allergies: No Known Allergy (Unverified , 04/03/17) PMhx/Soc History of Surgery: No Anesthesia Reaction: No Hx Neurological Disorder: No Hx Respiratory Disorders: No Hx Cardiac Disorders: Yes (HTN) Hx Psychiatric Problems: No Hx Miscellaneous Medical Probl: Yes (DM, HIGH CHOLESTEROL) Hx Alcohol Use: No Hx Substance Use: No Hx Tobacco Use: No Smoking Status: Never smoker Physical Exam Vitals Vital Signs Date Temp Pulse Resp B/P (MAP) Pulse Ox O2 O2 Flow FiO2 Time Delivery Rate 12/02/18 98.5 72 18 151/74 95 Room Air 16:43 (99) 12/02/18 99.4 77 20 144/65 96 14:37 (91) Physical Exam Constitutional:Well-developed. Well-nourished. HEENT:Normocephalic. Atraumatic.Pupils were equal round reactive to light. Moist mucous membranes.No tonsillar exudates. Bulging erythema of the right tympanic membrane with no tenderness of the right auricle. Neck: No nuchal rigidity. No lymphadenopathy. No posterior cervical spine tenderness or step-offs. Respiratory: Not using accessory muscles of respiration.Lungs were clear to auscultation bilaterally. No rhonchi. No rales. No wheezing. Cardiovascular: Regular rate regular rhythm.No murmurs. No rubs were ap preciated.S1, S2 normal. Distal pulses are palpable 2+ bilaterally. GI: Abdomen was soft. Nontender. Non Distended. No pulsatile abdominal masses or bruits. No rebound. No guarding. Bowel sounds were present and normal. Muscle skeletal: Full range of motion of both the upper and lower extremities b ilaterally.Normal muscle tone.No assymetrical calf tenderness or swelling. Skin: No petechia, no purpura. No lesions on the palms or the soles of the feet. No maculopapular rash. NEURO: Patient was alert, awake, orientated x3.No facial droop. Gait observed and normal with no ataxia.Speech had regular rate and rhythm. No focal neurological deficits. Result Diagram: 12/02/18 1547 12/02/18 1547 Results 24 hrs Laboratory Tests Test 12/02/18 15:47 White Blood Count 5.7 10^3/ul Red Blood Count 4.78 10^6/ul Hemoglobin 14.2 g/dl Hematocrit 43.0 % Mean Corpuscular Volume 90.0 fl Mean Corpuscular Hemoglobin 29.7 pg Mean Corpuscular Hemoglobin Concent 33.0 g/dl Red Cell Distribution Width 12.4 % Platelet Count 251 10^3/UL Mean Platelet Volume 10.1 fl Immature Granulocytes % 0.300 % Neutrophils % 50.2 % Lymphocytes % 29.7 % Monocytes % 9.3 % Eosinophils % 9.6 % Basophils % 0.9 % Nucleated Red Blood Cells % 0.0 /100WBC Immature Granulocytes # 0.020 10^3/ul Neutrophils # 2.9 10^3/ul Lymphocytes # 1.7 10^3/ul Monocytes # 0.5 10^3/ul Eosinophils # 0.6 10^3/ul Basophils # 0.1 10^3/ul Nucleated Red Blood Cells # 0.0 10^3/ul Prothrombin Time 12.4 Sec Prothrombin Time Ratio 1.0 INR International Normalized Ratio 0.91 Activated Partial Thromboplast Time 26.6 Sec Sodium Level 140 mmol/L Potassium Level 4.1 mmol/L Chloride Level 105 mmol/L Carbon Dioxide Level 26 mmol/L Anion Gap 9 Blood Urea Nitrogen 17 mg/dl Creatinine 0.78 mg/dl Est Glomerular Filtrat Rate mL/min mL/min Glucose Level 137 mg/dl Calcium Level 9.3 mg/dl Total Bilirubin 0.2 mg/dl Direct Bilirubin 0.00 mg/dl Indirect Bilirubin 0.2 mg/dl Aspartate Amino Transf (AST/SGOT) 35 IU/L Alanine Aminotransferase (ALT/SGPT) 29 IU/L Alkaline Phosphatase 89 IU/L Total Protein 8.2 g/dl Albumin 4.6 g/dl Globulin 3.60 g/dl Albumin/Globulin Ratio 1.27 Procedures/MDM This is an 88-year-old female presented to the emergency department with physical exam findings suggestive of a right otitis media. However given the patient's age and comorbidities I do feel is necessary to obtain a CT scan of the head as she was also complaining of mild headache. There is no evidence of intracerebral hemorrhage mass-effect or midline shift. No electrolyte abnormalities to suggest complication such as mastoiditis. I did feel the pat ient be safely discharged home with antibiotics. She was given amoxicillin. The patient was discharged home in fair condition. They were instructed to return to the emergency department at any time if there was any worsening of their condition. The patient stated they would follow up with their PCP in the next 24-48 hours to initiate a suitable medication regimen under the care of their PCP as well as to allow their PCP to monitor any drug reactions. The patient was discharged home with prescriptions after they gave informed consent to the new medication. They were also fully informed by myself on the adverse effects and adverse drug interactions in order to provide adequate safeguards to prevent possible adverse reactions to medications. Departure Diagnosis: Primary Impression: Otitis media Otitis media type: unspecified Chronicity: acute Qualified Codes: H66.90 - Otitis media, unspecified, unspecified ear Condition: Fair Patient Instructions: Otitis Media, Abx Tx (Adult) NIKOLAI,JACE MD Dec 02, 2018 18:47
[2018-12-02 19:02] VITALS: BP 167/69; PULSE 58; RESP 16
== END 2018-12-02 19:02 | disposition home or self-care (01) ==
LOC: E/R 14:32
DX: H66.91 Otitis media, unspecified, right ear (principal); I10 Essential (primary) hypertension; E11.9 Type 2 diabetes mellitus without complications; R51 Headache; Z79.82 Long term (current) use of aspirin
CPT/HCPCS: 70450; 80053; 85025; 85610; 85730

== ENCOUNTER 2019-03-19 06:42 | Emergency (ER) | payer OTHER ==
[~2019-03-19] VITALS: Ht 154.9 cm; Wt 59.0 kg
[~2019-03-19 06:42] MED LIST changes: +AMOX500C2 PO
[2019-03-19 06:44] VITALS: Ht 154.9 cm; Wt 59.0 kg
[2019-03-19] MEDS ORDERED: IPRATROPIUM (NEB) 0.5 MG/2.5 ML AMP INH STA (07:29)
[2019-03-19] MEDS ORDERED: METHYLPREDNISOLONE 125 MG INJ IV STA (07:29)
[2019-03-19] MEDS ORDERED: ALBUTEROL 0.5% (NEB) 2.5 MG/0.5 ML AMP INH STA (07:29)
--- NOTE | 2019-03-19 07:38 | ERD ---
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 The patient has been taking Robitussin and ibuprofen at home with some improvement, but her symptoms have persisted. The patient's family also endorses urinary frequency, but the patient has not had any dysuria or hematuria. The patient denies chills. The patient has had no headache or vision changes. The patient does not endorse neck or back pain. The patient denies lightheadedness or dizziness. The patient has had no chest pain or trouble breathing. The patient denies nausea or vomiting. The patient denies abdominal pain. The patient denies changes to bowel movements. The patient has had no focal deficits. The patient has had no weakness or numbness or tingling to the face or extremities. ROS All systems reviewed and are negative except as per history of present illness. Medications Home Meds Active Scripts Benzonatate* (Tessalon Perle*) 100 Mg Capsule, 100 MG PO Q8H PRN for COUGH, #12 CAP Prov:NORRIS IGLESIAS MD 03/19/19 Prednisone (Prednisone) 20 Mg Tab, 40 MG PO DAILY for 4 Days, TAB Prov:NORRIS IGLESIAS MD 03/19/19 Albuterol Sulfate* (Ventolin HFA*) 18 Gm Hfa.aer.ad, 2 PUFF INHALATION Q4H, #1 INHALER Prov:NORRIS IGLESIAS MD 03/19/19 Levofloxacin* (Levaquin*) 750 Mg Tablet, 750 MG PO DAILY for 5 Days, TAB Prov:NORRIS IGLESIAS MD 03/19/19 Amoxicillin* (Amoxicillin*) 500 Mg Cap, 500 MG PO TID for 7 Days, CAP Prov:JACE MENCHACA MD 12/02/18 Levofloxacin* (Levofloxacin*) 750 Mg Tablet, 750 MG PO DAILY for 10 Days, #10 TAB Prov:CHINA MENJIVAR MD 04/06/17 Lactobacillus Rhamnosus* (Culturelle*) 1 Each Cap.sprink, 1 CAP PO BID for 20 Days, #40 CAP Prov:CHINA MENJIVAR MD 04/06/17 Reported Medications Amlodipine Besylate* (Norvasc*) 5 Mg Tablet, 5 MG PO DAILY, TAB 04/03/17 Ramipril (Ramipril) 10 Mg Capsule, 10 MG PO DAILY, CAP 04/03/17 Aspirin* (Aspirin* EC) 81 Mg Tablet.dr, 81 MG PO DAILY, TAB 04/03/17 Allopurinol* (Allopurinol*) 100 Mg Tablet, 100 MG PO DAILY, TAB 04/03/17 Allergies Allergies: Coded Allergies: No Known Allergy (Unverified , 04/03/17) PMhx/Soc History of Surgery: No Anesthesia Reaction: No Hx Neurological Disorder: No Hx Respiratory Disorders: No Hx Cardiac Disorders: Yes (Hypertension, hyperlipidemia, diabetes) Hx Psychiatric Problems: No Hx Miscellaneous Medical Probl: No Hx Alcohol Use: No Hx Substance Use: No Hx Tobacco Use: No FmHx Family History: diabetes Physical Exam Vitals Vital Signs Date Temp Pulse Resp B/P (MAP) Pulse Ox O2 O2 Flow FiO2 Time Delivery Rate 03/19/19 64 18 93 21 08:00 03/19/19 98.1 72 18 137/63 95 Room Air 07:04 (87) 03/19/19 99.3 85 20 132/65 95 06:44 (87) Physical Exam Const: No apparent distress, well-developed, well-nourished Head: Normocephalic, Atraumatic Eyes: Normal Conjunctiva. Extraocular movements grossly intact. Pupils equal, round and reactive to light ENT: Normal External Ears, Nose and Mouth. Neck: Full range of motion. No meningismus. Resp: Faint end expiratory wheezes bilaterally. No rales or rhonchi. No increased work of breathing. Cardio: Regular rate and rhythm. No murmurs, rubs or gallops Abd: Soft, non tender, non distended. Normal bowel sounds Skin: No petechiae or rashes Back: No midline tenderness. No CVA tenderness Ext: No cyanosis, or edema Neur: Awake and alert. Cranial nerves intact. No facial droop. Normal strength, sensation and coordination. Psych: Normal Mood and Affect Result Diagram: 03/19/19 0732 03/19/19 0732 Results 24 hrs Laboratory Tests Test 03/19/19 07:32 03/19/19 07:44 White Blood Count 5.4 10^3/ul Red Blood Count 4.79 10^6/ul Hemoglobin 14.3 g/dl Hematocrit 43.8 % Mean Corpuscular Volume 91.4 fl Mean Corpuscular Hemoglobin 29.9 pg Mean Corpuscular Hemoglobin Concent 32.6 g/dl Red Cell Distribution Width 12.6 % Platelet Count 222 10^3/UL Mean Platelet Volume 10.2 fl Immature Granulocytes % 0.200 % Neutrophils % 62.4 % Lymphocytes % 19.3 % Monocytes % 12.4 % Eosinophils % 5.0 % Basophils % 0.7 % Nucleated Red Blood Cells % 0.0 /100WBC Immature Granulocytes # 0.010 10^3/ul Neutrophils # 3.4 10^3/ul Lymphocytes # 1.0 10^3/ul Monocytes # 0.7 10^3/ul Eosinophils # 0.3 10^3/ul Basophils # 0.0 10^3/ul Nucleated Red Blood Cells # 0.0 10^3/ul Sodium Level 142 mmol/L Potassium Level 4.6 mmol/L Chloride Level 104 mmol/L Carbon Dioxide Level 27 mmol/L Anion Gap 11 Blood Urea Nitrogen 14 mg/dl Creatinine 0.82 mg/dl Est Glomerular Filtrat Rate mL/min mL/min Glucose Level 147 mg/dl Calcium Level 9.2 mg/dl Urine Color YELLOW Urine Clarity SLIGHTLY CLOUDY Urine pH 5.0 Urine Specific [place] 1.019 Urine Ketones NEGATIVE mg/dL Urine Nitrite POSITIVE mg/dL Urine Bilirubin NEGATIVE mg/dL Urine Urobilinogen NEGATIVE mg/dL Urine Leukocyte Esterase TRACE Prema/ul Urine Microscopic RBC 2 /HPF Urine Microscopic WBC 13 /HPF Urine Bacteria FEW /HPF Urine Mucus FEW /HPF Urine Hemoglobin NEGATIVE mg/dL Urine Glucose NEGATIVE mg/dL Urine Total Protein NEGATIVE mg/dl Current Medications Medications Dose Sig/Honey Start Time Status Last (Trade) Ordered Route PRN Stop Time Admin Dose Reason Admin Ipratropium 1.5 mg ONCE STAT 03/19/19 DC 03/19/19 [place] INH 07: 07:54 (Atrovent 03/19/19 07:38 0.02% (Neb)) Albuterol 15 mg ONCE STAT 03/19/19 DC 03/19/19 (Proventil INH 07:29 07:54 0.5% (Neb)) 03/19/19 07:38 125 mg ONCE STAT 03/19/19 DC 03/19/19 Methylprednis IV 07:29 07:51 olone Sodium 03/19/19 07:38 Succinate (Solu-Medrol) 150 ml @ ONCE ONCE 03/19/19 03/19/19 Levofloxacin/ 100 mls/hr IVPB 08:30 08:23 Dextrose 03/19/19 09:59 Procedures/MDM MDM The patient's presentation warrants further investigation. Previous medical records, if available, were reviewed. LABS The patient's laboratory testing was obtained and reviewed. No emergent treatment was required unless described below. CBC: No E/o systemic infection or severe anemia or thrombocytopenia Chemistry: No E/o severe acidosis or alkalosis or renal failure or diabetic ketoacidosis Urine: E/o acute infection without hematuria Influenza: Negative EKG EKG read by me: Rate/Rhythm: Regular rate and rhythm at a rate of 77 bpm Intervals: Normal [place]: Normal Impression: Poor R wave progression. Nonspecific repolarization changes without evidence of acute ischemia or arrhythmia IMAGING Imaging and Radiology interpretation reviewed. CXR FINDINGS: The heart is enlarged. The thoracic aorta is calcified. There is a right upper lobe infiltrate. There is a questionable 1.3 cm right upper lobe no dular opacity within the infiltrate. There is no pleural effusion or pneumothorax. IMPRESSION: Mild cardiomegaly. Calcified aorta consistent with atherosclerotic disease. Right upper lobe consolidation with a possible focal 1.3 cm nodular opacity. Follow-up CT chest is recommended. Electronically viewed and signed by Carlo Mcwilliams MD, on 03/19/2019 07:56 TREATMENT/DISPOSITION The patient presents with symptoms most consistent with bronchitis likely related to pneumonia, which will need to be treated. There is a possible focal nodularity within the right upper lobe consolidation. I discussed this with the family who will follow up with the primary care physician for follow-up CT imaging after pneumonia treatment. The patient was also found to have a urinary tract infection. Both infections may be treated with Levaquin. The patient's influenza test is negative. The patient was treated with nebulized albuterol and ipratropium in addition to IV Solu-Medrol. The patient was given a dose of Levaquin in the emergency department. She will be discharged with Levaquin as well. The patient does not meet criteria for a systemic inflammatory response. The patient is not septic. I do not believe the patient requires a full septic workup. The patient's chest xray does not reveal pneumothorax or pleural effusions or pulmonary edema. The patient does not have a widened mediastinum and does not have signs or symptoms concerning for thoracic aortic aneurysm or dissection. The patient does not have pneumomediastinum or signs concerning for esophageal tear or rupture. The patient has no clinical or radiographic signs of pericardial effusion or tamponade. The patient does not have pneumoperitoneum and I have decreased suspicion of viscus perforation as possible referred pain. The patient does not have a history of heart failure and I have low suspicion for this. The patient is not tachypneic or hypoxic. The patient is breathing comfortably and without pleuritic pain. The patient is not on hormonal therapy. The patient has no history of clotting or bleeding disorders. The patient has no calf tenderness. The patient has had no hemoptysis. I have decreased suspicion for PE. The patient's EKG is reassuring. I have low suspicion for acute coronary syndrome. DISCHARGE Upon reevaluation of the patient, symptoms have improved. No emergent diagnoses were identified. At this time, I feel that the patient stable for discharge. The patient was instructed to follow-up with a primary care physician in 1-3 days. The patient will be given strict precautions with which to return to the emergency department. Prescriptions: Levaquin, albuterol, prednisone, Tessalon Perles The patient's blood pressure was elevated at greater than 120/80 while in the emergency department. The patient was otherwise stable with no evidence of hypertensive urgency or emergency. The patient does not require admission for blood pressure control. I have discussed with the patient the risks of hypertension. I have instructed the patient to return to the ER for any new or worsening symptoms including chest pain, shortness of breath, headache, blurred vision, confusion, nausea, vomiting or LOC. I have advised the patient to follow up with the primary care physician for outpatient monitoring and treatment for hypertension in 1-3 days. Disclaimer: Inadvertent spelling and grammatical errors are likely due to EHR/dictation software use and do not reflect on the overall quality of patient care. Note that the electronic time recorded on this note does not necessarily reflect the actual time of the patient encounter. Departure Diagnosis: Primary Impression: Pneumonia Pneumonia type: due to unspecified organism Laterality: right Lung location: upper lobe of lung Qualified Codes: J18.1 - Lobar pneumonia, unspecified organism Additional Impressions: Acute bronchitis Bronchitis organism: unspecified organism Qualified Codes: J20.9 - Acute bronchitis, unspecified Cough Wheezing Pulmonary nodule, right UTI (urinary tract infection) Urinary tract infection type: acute cystitis Hematuria presence: without hematuria Qualified Codes: N30.00 - Acute cystitis without hematuria Condition: Stable Patient Instructions: Bronchitis With Wheezing (Adult), Cough, Chronic, Uncertain Cause, (Adult), Pneumonia (Adult), Understanding Urinary Tract Infections (UTIs) Additional Instructions: Thank you for for coming to [facility] for your care today. Please ask your nurse or provider if you have questions about your care today and do not leave until all your questions have been answered. Please use any medications given as directed and follow-up with your doctor (or the doctor you were referred to) in the next 1-3 days. If you do not have a primary care doctor you may follow up at the [facility] or formerly [facility] (listed below). You may also use motrin and tylenol as needed for fever and/or pain unless instructed otherwise by your provider or nurse. Indications for more urgent follow-up have been discussed, but you may return to the Emergency Department at ANY time for any worrisome or worsening symptoms. If you have abdominal pain, please know that no test or exam you received is perfect and you should follow up within 8 hours for continued pain. If you had any imaging studies today, such as an X-Ray or CT Scan, these studies will be reviewed later by a radiologist. You will be called if there are important findings that were not identified today, so make sure the contact information you provided at registration is correct. If you received any narcotic pain control medicine today, such as Vicodin, Morphine or Dilaudid, your coordination and judgment may be affected for a number of hours. Please do not drive or operate heavy machinery, and you may want someone to assist you at home. If you were given a prescription for narcotic medication, be aware that it is very addictive- use sparingly and only if necessary. PLEASE SEEK FURTHER EVALUATION AND MANAGEMENT AT YOUR DOCTORS OFFICE WITHIN THE NEXT 1-3 DAYS. IT IS YOUR RESPONSIBILITY TO MAKE AN APPOINTMENT FOR FOLOW-UP CARE. IF YOU HAVE A PRIMARY DOCTOR, PLEASE CALL THEIR OFFICE TO SCHEDULE AN APPOINTME NT FOR FOLLOW UP. IF YOU DO NOT HAVE A PRIMARY DOCTOR YOU CAN CALL OUR PHYSICIAN REFERRAL HOTLINE AT IF YOU CAN NOT AFFORD TO SEE A PHYSICIAN YOU CAN CHOSE FROM THE FOLLOWING [facility]: [facility] [address] [facility] [address] [facility] [facility] [address] [facility] [address] [facility] [address] [facility]. [facility]. [address] NORRIS ARRINGTON MD Mar 19, 2019 07:38
[2019-03-19] MEDS ORDERED: BENZ-6 PO (08:29)
[2019-03-19] MEDS ORDERED: ALBU18HF INHALATION (08:29)
[2019-03-19] MEDS ORDERED: PRED20TA PO (08:29)
[2019-03-19] MEDS ORDERED: LEVO750T25 PO (08:29)
[2019-03-19] MEDS ORDERED: LEVOFLOXACIN 750MG/D5W (PMX) 150 ML IVPB ONE (08:30)
[2019-03-19 09:33] VITALS: BP 112/62; PULSE 102; RESP 24
== END 2019-03-19 09:33 | disposition home or self-care (01) ==
LOC: E/R 06:42
DX: J18.9 Pneumonia, unspecified organism (principal); I10 Essential (primary) hypertension; E11.9 Type 2 diabetes mellitus without complications; J20.9 Acute bronchitis, unspecified; N30.00 Acute cystitis without hematuria; R91.1 Solitary pulmonary nodule; Z79.82 Long term (current) use of aspirin
CPT/HCPCS: 36415; 71045; 80048; 81001; 85025; 87400; 93005; 94644; 96374; 96375; 99285; J1956; J2930